=== PATIENT | female | born 1975 | race African-American/Black ===

== ENCOUNTER 2018-02-10 20:09 | Emergency (ER) | payer OTHER ==
[~2018-02-10] VITALS: Ht 170.2 cm; Wt 104.3 kg
[2018-02-10 20:42] VITALS: BP 154/101
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
[2018-02-10] MEDS ORDERED: CYCLOBENZAPRINE10 MG ORAL (21:25)
[2018-02-10] MEDS ORDERED: NORCO 5-325 TA1 EACH ORAL (21:25)
[2018-02-10 21:45] VITALS: BP 151/100
[2018-02-10] MEDS ORDERED: Norco 5mg/325mg tab ORAL ONE (21:45)
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
== END 2018-02-10 21:52 | disposition home or self-care (01) ==
LOC: EMR 20:58
DX: S16.1XXA Strain of muscle, fascia and tendon at neck level, initial encounter (principal); S33.5XXA Sprain of ligaments of lumbar spine, initial encounter; V43.52XA Car driver injured in collision with other type car in traffic accident, initial encounter; Y92.488 Other paved roadways as the place of occurrence of the external cause; E11.9 Type 2 diabetes mellitus without complications; I10 Essential (primary) hypertension; Z90.710 Acquired absence of both cervix and uterus
CPT/HCPCS: 71250; 72125; 74176; 99284